=== PATIENT | male | born 1970 | race Caucasian/White ===

== ENCOUNTER 2023-05-01 08:51 | Outpatient (CLI) | payer BC, SELFPAY | END 2023-05-01 08:52 | disposition home or self-care (01) | LOC: NFLDREF 11:57 | PROVIDERS: PCP Internal Medicine; Referring Provider Internal Medicine; Visit Provider Internal Medicine | DX: E78.5 Hyperlipidemia, unspecified (principal); Z12.5 Encounter for screening for malignant neoplasm of prostate | CPT/HCPCS: 80053; 80061; G0103 ==

== ENCOUNTER 2024-04-18 07:08 | Outpatient (CLI) | payer BC, SELFPAY ==
--- NOTE | 2024-04-18 08:25 | W.ANESCHARGE ---
Anesthesia Charges Start Date/Time Anesthesia Start Date: 04/18/24 Anesthesia Start Time: 07:54 Stop Date/Time Anesthesia Stop Date: 04/18/24 Anesthesia Stop Time: 08:23 Coding CPT Codes CPT Codes: IMTIAZ LWR INTST NDSC NOS - 15136 ([id number]) P2 - PATIENT W/MILD SYST DISEASE, QK - HAT BLOCKING OPERATOR 2-4 CNCRNT ANES PROC, QX - SOCIAL DIRECTOR SVC W/ MD MED DIRECTION
--- NOTE | 2024-04-18 09:04 | W.ANESCHARGE ---
Anesthesia Charges Start Date/Time Anesthesia Start Date: 04/18/24 Anesthesia Start Time: 07:54 Stop Date/Time Anesthesia Stop Date: 04/18/24 Anesthesia Stop Time: 08:23 Coding CPT Codes CPT Codes: IMTIAZ LWR INTST NDSC NOS - 56456 ([id number]) P2 - PATIENT W/MILD SYST DISEASE, QK - WEIGHT SHIFTER 2-4 CNCRNT ANES PROC, QX - SERVER DEVELOPER SVC W/ MD MED DIRECTION
== END 2024-04-18 07:09 | disposition home or self-care (01) ==
LOC: OP CLINIC 07:08
PROVIDERS: PCP Internal Medicine; Visit Provider Internal Medicine
DX: Z12.11 Encounter for screening for malignant neoplasm of colon (principal); D17.5 Benign lipomatous neoplasm of intra-abdominal organs; D12.3 Benign neoplasm of transverse colon; Z86.0100 Personal history of colon polyps, unspecified
CPT/HCPCS: 00811; 45380; 88305; J2704

== ENCOUNTER 2024-05-27 07:55 | Outpatient (CLI) | payer BC, SELFPAY | END 2024-05-27 07:56 | disposition home or self-care (01) | LOC: NFLDREF 05-31 00:26 | PROVIDERS: PCP Internal Medicine; Referring Provider Internal Medicine; Visit Provider Internal Medicine | DX: E78.5 Hyperlipidemia, unspecified (principal) | CPT/HCPCS: 80053; 80061 ==

== ENCOUNTER 2024-06-27 07:06 | Outpatient (CLI) | payer BC, SELFPAY ==
--- NOTE | 2024-06-27 08:26 | P.ANES_ITS ---
Anesthesia Charges Start Date/Time Anesthesia Start Date: 06/27/24 Anesthesia Start Time: 07:55 Stop Date/Time Anesthesia Stop Date: 06/27/24 Anesthesia Stop Time: 08:27 Coding CPT Codes CPT Codes: IMTIAZ LWPam INTST NDSC NOS - 46219 ([id number]) P2 - PATIENT W/MILD SYST DISEASE, QX - DEVELOPMENT LEAD SVC W/ MD MED DIRECTION, QK - BACK TENDER PULP DRIER 2-4 CNCRNT ANES PROC
--- NOTE | 2024-06-27 08:26 | W.ANESCHARGE ---
Anesthesia Charges Start Date/Time Anesthesia Start Date: 06/27/24 Anesthesia Start Time: 07:55 Stop Date/Time Anesthesia Stop Date: 06/27/24 Anesthesia Stop Time: 08:27 Coding CPT Codes CPT Codes: IMTIAZ LWPam INTST NDSC NOS - 52979 ([id number]) P2 - PATIENT W/MILD SYST DISEASE, QX - ADMINISTRATIVE JUDGE SVC W/ MD MED DIRECTION, QK - HEAD CHAR FILTER TANK TENDER 2-4 CNCRNT ANES PROC
--- NOTE | 2024-06-27 09:07 | P.ANES_ITS ---
Anesthesia Charges Start Date/Time Anesthesia Start Date: 06/27/24 Anesthesia Start Time: 07:55 Stop Date/Time Anesthesia Stop Date: 06/27/24 Anesthesia Stop Time: 08:27 Coding CPT Codes CPT Codes: IMTIAZ LWR INTST NDSC NOS - 00095 ([id number]) P2 - PATIENT W/MILD SYST DISEASE, QK - MACHINE ROOM OPERATOR 2-4 CNCRNT ANES PROC, QX - MATHEMATICS PROFESSOR SVC W/ MD MED DIRECTION
--- NOTE | 2024-06-27 09:07 | W.ANESCHARGE ---
Anesthesia Charges Start Date/Time Anesthesia Start Date: 06/27/24 Anesthesia Start Time: 07:55 Stop Date/Time Anesthesia Stop Date: 06/27/24 Anesthesia Stop Time: 08:27 Coding CPT Codes CPT Codes: IMTIAZ LWR INTST NDSC NOS - 87596 ([id number]) P2 - PATIENT W/MILD SYST DISEASE, QK - TILE FITTER 2-4 CNCRNT ANES PROC, QX - PRINTING MACHINIST SVC W/ MD MED DIRECTION
== END 2024-06-27 07:07 | disposition home or self-care (01) ==
PROVIDERS: PCP Internal Medicine; Visit Provider Internal Medicine
DX: Z12.11 Encounter for screening for malignant neoplasm of colon (principal); Z86.0100 Personal history of colon polyps, unspecified; D12.0 Benign neoplasm of cecum; D12.3 Benign neoplasm of transverse colon; D12.8 Benign neoplasm of rectum
CPT/HCPCS: 00811; 00812; 45380; 45385; 88305; J2704

== ENCOUNTER 2024-07-10 22:18 | Emergency (ER) | payer BC, SELFPAY ==
--- NOTE | 2024-07-10 22:50 | CRLHL7_ITS ---
For Patients: As a result of the Century Cures Act, medical imaging exams and procedure reports are released immediately into your electronic medical record. You may view this report before your referring provider. If you have questions, please contact your health care provider. Indication: knee cap dislocation? tripped fell and landed on knee. Technique: Left knee 3 views Comparison: None Findings: Bones: The medial patellofemoral joint space appears to be abnormally widened, allowing for a slightly nonstandard imaging angle. There may also be mild lateral patellar subluxation. No evident acute fracture. Small patellar quadriceps enthesophyte. Joint spaces: No evident joint effusion. Mild degenerative changes in the lateral and patellofemoral compartments. Soft tissues: Unremarkable. Impression: Abnormal widening of the medial patellofemoral joint space with questionable mild lateral patellar subluxation. These findings can be seen in the setting of a recent transient lateral patellar dislocation. Dictated by Santhosh Starr MD @ 07/11/2024 12:28:01 AM (Electronically Signed)
[2024-07-10 22:51] VITALS: BP 108/61; PULSE 85; RESP 16; TEMP 36.7; O2SAT 95
--- NOTE | 2024-07-11 00:26 | ED.LOWEXIN ---
HPI - Extremity Injury (Lower) General Time Seen by Provider: 00:26 Date Seen: 07/11/24 Chief Complaint: Extremity Pain/Injury, Lower Stated Complaint: Popped left knee Time Seen by Provider: 07/11/24 00:01 Source: patient Mode of arrival: ambulatory Limitations: no limitations History of Present Illness HPI Narrative: 54-year-old male who presents today with left knee pain. Tripped and landed on his left knee, felt a pop and has had pain since then. Unable to bear weight. Related Data Previous Rx's ?Medication ?Instructions ?Recorded peg 3350-electrolytes 236 240 ml PO ONCE #1 bottle 05/16/24 gram-22.74 gram-6.74 gram-5.86 gram solution (Golytely) lotilaner 0.25 % eye drops 1 drp ophthalmic (eye) Q12H 6 05/31/24 weeks #10 mL Allergies Allergy/AdvReac Type Severity Reaction Status Date / Time No Known Drug Allergies Allergy Verified 05/31[facility]24 07[facility] History (Updated 07/11/24 @ 00:39 by Santiago Webb MD) Blepharitis ?H01.009 - Unspecified blepharitis unspecified eye, unspecified eyelid (ICD-10) Facial trauma ?S09.93XA - Unspecified injury of face, initial encounter (ICD-10) Social History (Updated 05/31/24 @ 08:15 by Lolita Robison ~ [facility]) What is your current living situation?: I presently have a place to live Problems where you live: declined to answer In the past 12 months, utilities in danger of being shut off: no In past 12 months, lack of transportation kept you from medical appts, meetings, work, or getting things needed for daily living: no In the past 12 mos, have been you worried that your food would run out before you had money to buy more?: never true In the past 12 mos, the food you bought just didn't last and you didn't have money to buy more?: never true Smoking Status: Never smoker Second hand tobacco smoke exposure: No How often do you have a drink containing alcohol: never AUDIT-C Alcohol total score: 0 Non-prescribed substance use: denies use How often does anyone, including family, friends and others, physically hurt you: never How often does anyone, including family, friends and others, insult or talk down to you: never How often does anyone, including family, friends and others, threaten you with harm: never How often does anyone, including family, friends and others, scream or curse at you: never Exam Narrative: Exam Narrative: General: well nourished , NAD Head: Atraumatic and normocephalic ENT: External ears and external nose are normal Eyes: Conjunctiva clear, pupils are equal reactive, external ocular motions are intact Neck: Full spontaneous range of motion of the neck Lungs: No respiratory distress Musculoskeletal: No tenderness or deformity Neurologic: Left patella is slightly laterally displaced with soft tissue swelling and tenderness medially, also some soft tissue swelling and marked tenderness of the distal quadriceps on the left side Skin: No rashes Psych: Mood and affect are appropriate Const: Vital Signs, click to edit/add: Vital Signs - 24 hr 07/10/24 22:51 07/11/24 00:55 07/11/24 00:56 Temperature 98.1 F 98.1 F 98.1 F Pulse Rate [Pulse Oximeter] 85 79 79 Respiratory Rate 16 16 16 Blood Pressure [Ri ght Upper Arm] 108/61 112/74 112/74 Pulse Oximetry 95 95 Oxygen Delivery Me thod Room Air Room Air Course Course ED Course: Patient seen and examined, x-ray independently interpreted by me with slight lateral deviation of the patella. Patient presents today with left knee pain after falling on it. He notes that the patella was displaced off the side of the knee is little better and now although still displaced. On exam, vitally stable, there is swelling and tenderness of the distal quadriceps as well as some soft tissue swelling medial to the patella but no definite joint effusion. Symptoms are most consistent with patellar dislocation and quadriceps tendon injury along with tear of the medial retinaculum. Nonweightbearing, immobilizer, and follow-up with orthopedics. Vital Signs Vital signs: Initial Vital Signs Temperature 98.1 F 07/10/24 22:51 Temperature Source Temporal Artery Scan 07/10/24 22:51 Pulse Rate 85 07/10/24 22:51 Respiratory Rate 16 07/10/24 22:51 Blood Pressure 108/61 07/10/24 22:51 Blood Pressure Mean 76 07/10/24 22:51 Blood Pressure Position Sitting 07/10/24 22:51 Pulse Oximetry 95 07/10/24 22:51 Oxygen Delivery Method Room Air 07/10/24 22:51 Vital Signs Temperature 98.1 F 07/10/24 22:51 Pulse Rate 85 07/10/24 22:51 Respiratory Rate 16 07/10/24 22:51 Blood Pressure 108/61 07/10/24 22:51 Pulse Oximetry 95 07/10/24 22:51 Oxygen Delivery Method Room Air 07/10/24 22:51 Temperature 98.1 F 07/11/24 00:56 Pulse Rate 79 07/11/24 00:56 Respiratory Rate 16 07/11/24 00:56 Blood Pressure 112/74 07/11/24 00:56 Pulse Oximetry 95 07/11/24 00:55 Oxygen Delivery Method Room Air 07/11/24 00:55 Discharge Plan Discharge Clinical Impression: Closed dislocation of left patella, Traumatic medial retinacular tear of left knee, Quadriceps muscle strain Patient Disposition: Home, Self-Care Condition: Stable Instructions: Knee Dislocation (ED) Additional Instructions: No weight-bearing for the next 24 hours, after that weight-bearing as tolerated Wear knee immobilizer when your up walking, you take this off at night Call orthopedic clinic [phone] for follow-up appointment in 5-7 days Activity Level: Weight Bearing as Tolerated Discharge Diet: Regular Prescriptions: No Action lotilaner 0.25 % drops 1 drp ophthalmic (eye) Q12H 42 Days Qty: 10 1RF peg 3350-electrolytes [Golytely] 236-22.74-6.74 -5.86 gram recon soln 240 ml PO ONCE Qty: 1 0RF Rx Instructions: 4pm day prior to procedure. Drink 8oz glass every 15 minutes until 1/2 of solution is gone. 6 hours prior to procedure drink 8 oz glass every 15 minutes until remaining solution gone. Follow Up/Referrals: Ozzy Floyd MD [Primary Care Provider, Internal Medicine] Stand Alone Forms: [facility] Info Inst[facility]
[2024-07-11 00:55] VITALS: BP 112/74; PULSE 79; RESP 16; TEMP 36.7; O2SAT 95
[2024-07-11 00:56] VITALS: BP 112/74; PULSE 79; RESP 16; TEMP 36.7
== END 2024-07-11 00:57 | disposition home or self-care (01) ==
LOC: ED 07-11 00:41
PROVIDERS: Emergency Provider Family Medicine; PCP Internal Medicine
DX: S83.005A Unspecified dislocation of left patella, initial encounter (principal); S83.411A Sprain of medial collateral ligament of right knee, initial encounter; S76.111A Strain of right quadriceps muscle, fascia and tendon, initial encounter; W01.0XXA Fall on same level from slipping, tripping and stumbling without subsequent striking against object, initial encounter
CPT/HCPCS: 73562; 99283; 99284

== ENCOUNTER 2024-07-25 06:59 | Outpatient (CLI) | payer BC, SELFPAY ==
--- NOTE | 2024-07-25 07:15 | MR_ITS ---
[address] [address] Phone:?[phone] Fax:?[phone] Referring Physician Information: Junior Rose M.D. [id number] [facility] [address] Phone:?[phone] Fax:?[phone] Patient:Adri Jose D.O.B:?1970 Sex:?Male Phone:?[phone] [facility] MRN:?[id number] Exam Date:?07/25/2024 EXAM: MRI of the LEFT KNEE, without contrast CLINICAL: Left knee injury. Evaluate for quadriceps tendon tear and patellar dislocation. COMPARISONS: X-rays 07/11/2024. TECHNICAL: Multiplanar multisequence MRI of the left knee was obtained. SEDATION: None. CONTRAST: None. FINDINGS: Ligaments: ACL: Intact and unremarkable. PCL: Intact and unremarkable. MCL: There is soft tissue edema about the MCL, which otherwise appears intact. LCL: There is soft tissue edema about the LCL, which otherwise appears intact. Posterolateral corner: There is increased soft tissue edema about the posterolateral corner structures. Popliteus tendon, biceps femoris, iliotibial band, and the popliteofibular ligament appear intact. Posteromedial corner: Semimembranosus, pes anserine tendons and posterior oblique ligament appear intact. Extensor mechanism: Patellar tendon: There is mild tendinosis of the tendon. No patellar tendon disruption. Quadriceps tendon: There is full-thickness tearing throughout the distal quadriceps tendon at the patellar attachment with proximal retraction of the torn tendon by up to 4 cm as seen on sagittal series 6 image 10-24. Retinacula: There is full-thickness tearing of the medial patellofemoral ligament/medial patellar retinaculum with ill-defined partial tearing involving the lateral patellar retinaculum. Patellofemoral joint: Patella: No significant chondromalacia. Trochlea: No significant chondromalacia. Medial compartment: Medial meniscus: There is complex tearing involving the peripheral undersurface of the posterior horn extending into the junction with the body segment on sagittal series 6 images 7-10 and coronal series 8 images 24-27. Medial cartilage: No significant chondromalacia. Lateral compartment: Lateral meniscus: No evidence of discrete meniscal tear or meniscal displacement. Lateral cartilage: No significant chondromalacia. Knee joint: Effusion: Moderate sized left knee effusion with extension of fluid through the distal quadriceps tendon defect into the anterior knee subcutaneous soft tissues. Intra-articular bodies:?No convincing bodies identified. Popliteal cyst: None. Bones: There is mild marrow edema/contusion involving the peripheral anterior medial femoral condyle on coronal series 8 images 16-18. No discrete fracture. There is scattered edema involving the subcutaneous soft tissues of the knee. IMPRESSION: 1. Complete full-thickness tearing of the distal quadriceps tendon from the patellar attachment with up to 4 cm of proximal retraction of torn tendon fibers. Moderate-sized joint effusion is present with extension of joint fluid through the distal quadriceps tendon defect into the anterior knee subcutaneous soft tissues. 2. Full-thickness tearing of the medial patellofemoral ligament/retinaculum with ill-defined partial tearing involving the lateral patellar retinaculum. 3. Tearing of the medial meniscus as above. 4. Soft tissue edema about the MCL and LCL, which otherwise appear intact. 5. Mild marrow edema/contusion involving the peripheral anterior medial femoral condyle. [facility] Electronically signed on 07/25/2024 11:47:00 AM by Francisco Peraza D.O.
== END 2024-07-25 07:00 | disposition home or self-care (01) ==
LOC: MRI 07:00
PROVIDERS: PCP Internal Medicine; Visit Provider Orthopaedic Surgery
DX: M25.562 Pain in left knee (principal); S76.112A Strain of left quadriceps muscle, fascia and tendon, initial encounter; S83.242A Other tear of medial meniscus, current injury, left knee, initial encounter; S83.005A Unspecified dislocation of left patella, initial encounter
CPT/HCPCS: 73721

== ENCOUNTER 2024-07-28 07:09 | Day surgery (SDC) | payer BC, SELFPAY ==
[2024-07-28] VITALS (16 sets, daily range): BP systolic 84–132; BP diastolic 52–88; PULSE 60–92; RESP 16–23; TEMP 35.9–36.4; O2SAT 91–98; BMI 30.8
[2024-07-28] MEDS: SODIUM CHLORIDE 0.9 % (FLUSH) 10 ML SYRINGE IVF (08:08)
[2024-07-28] MEDS: LACTATED RINGERS 1000 ML 1,000 ML 100 ML IV (08:08)
[2024-07-28] MEDS: fentaNYL 100 MCG/2 ML inj IVP (08:21)
[2024-07-28] MEDS: MIDAZOLAM HCL 1 MG/ML inj IVP (08:21)
--- NOTE | 2024-07-28 08:24 | SUR.PREOP ---
TIME?OUT:?0820 PT/RN/MDA?VERIFICATION?OF?SURGICAL?SITE,?PROCEDURE,?AND?CONSENT OBTAINED?PRIOR?TO?INVASIVE?PROCEDURE. all in agreement
[2024-07-28] MEDS: CEFAZOLIN 1 GM inj IVP (08:58)
--- NOTE | 2024-07-28 09:43 | P.ANES_ITS ---
Anesthesia Charges Start Date/Time Anesthesia Start Date: 07/28/24 Anesthesia Start Time: 08:43 Stop Date/Time Anesthesia Stop Date: 07/28/24 Anesthesia Stop Time: 10:16 Coding CPT Codes CPT Codes: ANESTH KNEE AREA SURGERY - 27144 ([id number]) P2 - PATIENT W/MILD SYST DISEASE, QK - FURNACE ROOM SUPERVISOR 2-4 CNCRNT ANES PROC, QX - CLERK TELEGRAPH SERVICE SVC W/ MD MED DIRECTION
--- NOTE | 2024-07-28 09:43 | W.ANESCHARGE ---
Anesthesia Charges Start Date/Time Anesthesia Start Date: 07/28/24 Anesthesia Start Time: 08:43 Stop Date/Time Anesthesia Stop Date: 07/28/24 Anesthesia Stop Time: 10:16 Coding CPT Codes CPT Codes: ANESTH KNEE AREA SURGERY - 47015 ([id number]) P2 - PATIENT W/MILD SYST DISEASE, QK - PACKING SHED SUPERVISOR 2-4 CNCRNT ANES PROC, QX - HYDROELECTRIC SYSTEMS TECHNICIAN SVC W/ MD MED DIRECTION
--- NOTE | 2024-07-28 10:04 | P.ORPRC_ITS ---
Procedure Note Date of procedure: 07/28/24 Procedure: PREOPERATIVE DIAGNOSIS: Left knee quads tendon tear POSTOPERATIVE DIAGNOSIS: Left knee quads tendon tear NAME OF OPERATION: Left knee quads tendon repair SURGEON: Junior Rose MD VALET ATTENDANT: Lashay Lugo PA-C ANESTHESIA: Spinal ESTIMATED BLOOD LOSS: 0 mL COMPLICATIONS: None SPECIMENS: None DRAINS: None PREOPERATIVE ANTIBIOTICS: Ancef 2 grams IMPLANTS: None INDICATIONS: The patient is a 54-year-old who fell recently sustaining the above diagnoses. Operative intervention was recommended. The risks, benefits and expected outcomes were discussed in detail. These included but were not limited to: Infection, bleeding, injury to blood vessel or nerve, venous thromboembolism. All questions were answered to their satisfaction. Use of an payroll and benefits assistant was necessary throughout the case for patient positioning and safety, soft tissue retraction, and closure. PROCEDURE: A femoral nerve block was placed by Anesthesia. Spinal anesthesia was administered. The patient was placed supine on the operating table. The left lower extremity was prepped and draped in the usual sterile fashion. The limb was exsanguinated with the Dennis bandage. The pneumatic tourniquet was inflated to 225 mmHg. A longitudinal, midline incision was made over the anterior aspect of the knee. Subcutaneous dissection was taken sharply to the quads tendon. Full-thickness medial and lateral flaps were elevated. The quads tendon was found to be ruptured completely from its insertion on the proximal pole of the patella. The medial and lateral retinacula were completely torn as well. Hematoma was removed with the curette and rongeur. A modified Krackow stitch x2 with 1.7 mm suture tape was placed in the quads tendon. We then drilled a Beath pin x3 through the patella from proximal to distal. We then passed suture tails through the patella using the Beath pins to shuttle them. One suture both medially and laterally and 2 suture tails centrally. We then advanced the patella proximally with a rake and tied the trans osseous suture tape sutures over the distal pole of the patella. We closed the medial and lateral retinacula with a # 1 FiberWire suture. Subcutaneous tissues were closed with a 3-0 Stratafix and the skin with a running 3-0 Stratafix in a subcuticular fashion. A dry dressing and T scope brace were applied. Sponge and needle counts were correct x2. The patient tolerated the procedure well. There were no apparent complications. They were carefully transferred to the hospital bed and taken to the postanesthesia care unit in satisfactory condition. PLAN: The patient will be discharged to home. They may weightbear as tolerates with the brace locked in full extension. No range of motion will be allowed for the 1st 2 weeks postoperatively, then 0-30 degrees for 2 weeks, then 0-60 degrees x2 weeks, then 0-90 degrees. They will follow up in the office in 2 weeks for a wound check and to unlock the brace 0-30 degrees. Physical therapy can be started after the 1st postoperative visit. I will plan to see him at 6 weeks postop.
--- NOTE | 2024-07-28 10:12 | P.ANES_ITS ---
Anesthesia Charges Start Date/Time Anesthesia Start Date: 07/28/24 Anesthesia Start Time: 08:43 Stop Date/Time Anesthesia Stop Date: 07/28/24 Anesthesia Stop Time: 10:16 Coding CPT Codes CPT Codes: ANESTH KNEE AREA SURGERY - 62350 ([id number]) P2 - PATIENT W/MILD SYST DISEASE, QK - CASE COORDINATOR 2-4 CNCRNT ANES PROC, QX - VENEER PRESS OPERATOR SVC W/ MD MED DIRECTION
--- NOTE | 2024-07-28 10:12 | W.ANESCHARGE ---
Anesthesia Charges Start Date/Time Anesthesia Start Date: 07/28/24 Anesthesia Start Time: 08:43 Stop Date/Time Anesthesia Stop Date: 07/28/24 Anesthesia Stop Time: 10:16 Coding CPT Codes CPT Codes: ANESTH KNEE AREA SURGERY - 61381 ([id number]) P2 - PATIENT W/MILD SYST DISEASE, QK - DIGITAL ACCOUNT DIRECTOR 2-4 CNCRNT ANES PROC, QX - SENIOR APPLICATION SOFTWARE ENGINEER SVC W/ MD MED DIRECTION
--- NOTE | 2024-07-28 10:40 | P.NB_ITS ---
Nerve Block Nerve Block Time Seen by Provider: 08:20 Date Seen: 07/28/24 Type of block requested by surgeon for post-operative analgesia: femoral Side: left Time out performed: Yes Verification of patient name: Yes Verification of date of : Yes Site marking: site marked Name of person performing procedure: Johnson Continuous monitoring Was continuous monitoring of O2 sat, B/P, air sampling and monitoring, recorded every 15 minutes?: Yes Procedure Checklist: sterile prep, needles and gloves Ultrasound guided. Images saved: Yes Medications given in 5ml increments after negative aspiration: Marcaine %: 0.5 mL: 20 Needle gauge: 20 Precedex (mcg): 25 Patient tolerated procedure well: Yes Block Charges Block Charge (with Pro Fee): Femoral Nerve Use of Ultrasound Machine for Block: Yes- US Guidance/pain block
[2024-07-28] MEDS: LACTATED RINGERS 1000 ML 1,000 ML 35 ML IV (10:42)
--- NOTE | 2024-07-28 10:49 | SUR.PHASEI ---
patient met discharge criteria per anesthesia
--- NOTE | 2024-07-28 11:06 | SUR.OPER ---
PATIENT QUESTIONS ANSWERED SATISFACTORILY PREOPERATIVELY. PATIENT BROUGHT TO OR #1 PER CART. Patient positioned supine on OR #1 bed. The perioperative team supported arms bilaterally on arm boards. Final approval of positioning by surgeon.
[2024-07-28] MEDS: IBUPROFEN 400 MG TABLET PO (11:47)
--- NOTE | 2024-07-28 12:14 | SUR.PHASEII ---
Patient reported wanting PT assistance with going on stairs and using crutches. Patient stood with assistance of nurse and walker, denied nausea. Patient tolerated standing and transferring to wheelchair. Patient and spouse to physical therapy in wheelchair.
[2024-07-28] MEDS: OXYCODONE 5 MG TABLET PO (12:48)
== END 2024-07-28 13:05 | disposition home or self-care (01) ==
LOC: OR 07:11
PROVIDERS: PCP Internal Medicine; Visit Provider Orthopaedic Surgery
PROC: (CPT 27385; principal; 2024-07-28 08:30)
DX: S76.112A Strain of left quadriceps muscle, fascia and tendon, initial encounter (principal); G89.18 Other acute postprocedural pain
CPT/HCPCS: 27385; 01320; 64447; 76942; 97116; 97161; 97530; A9270; J0665; J0690; J1100; J2250; J2405; J2704; J3010; J7120

== ENCOUNTER 2024-12-30 09:15 | Outpatient (RCR) | payer BC, SELFPAY ==
--- NOTE | 2024-12-30 09:58 | PT.OPDNX ---
PT [place] [facility] Daily Note PT [facility] Outpatient Daily Note Start: 08/15/24 08:34 Freq: Status: Active Protocol: Document 12/30/24 09:15 NLR (Rec: 12/30/24 09:57 NLR [id number]) E-signed By Nati Blancas DPT PT OP Daily Progress Note Visit Information Note Type Discharge Note Visit Number 10 Insurance Information Insurance Name [employer] Medical Diagnosis [id number] Other specified postprocedural state - LEFT quad tendon repair Treating Diagnosis M25.562 LEFT knee pain M25.662 LEFT knee stiffness M62.552 LEFT quad weakness Imaging Report Primary Provider: John Floyd MD Information Referring MD Moe Rose MD Subjective Preferred Name BUDDY Subjective Buddy reports for his final PT visit doing well. He reports some quick bending issues and difficulty with end range loaded extension that are consistent with motor control of quad. He also has noticed that he sometimes will walk with a circumduction on the L due to habit. Pain Comments Date of Last 08/29/24 Physician Visit Date of Next 10/12/24 Physician Visit Date of Surgery (If 07/28/24 applicable) Precautions Treatment PROTOCOL: July 28-August 11 WBAT - brace locked in Precautions/ extension Contraindications August 12-August 23 WBAT - brace at 30 degrees August 24-September 06 WBAT - brace at 60 degrees September 07-Sep 20 WBAT - brace at 90 degrees Sep 20-Oct 12 WBAT with brace unlocked (90 degrees) Oct 12 - likely DC brace Weight Bearing Full Weight Bearing Status Home Exercise Home Exercise Updated and finalized [facility] with patient today. Comments Added soft knee motor control step ups to improve motor control at knee and gait mechanics initial swing knee breaks to minimize circumduction. Access Code: [email or web address] URL: [email or web address] Date: 11/22/2024 Prepared by: Nati Blancas Exercises - Bridge with Straight Leg Raise - 2 sets - 10 reps - 2-3 seconds hold - core strength exercise type - Seated Long Arc Quad with Ankle Weight - 2 sets - 10 reps - 2-3 second hold - strength exercise type - Seated Hamstring Stretch - 1-2 reps - 30-60 seconds hold - stretch exercise type - Seated Knee Flexion Stretch - 1-2 reps - 1-5 minute hold - range of motion/stretch exercise type - Seated Passive Knee Extension - 1-2 reps - 5-15 minutes hold - range of motion/stretch exercise type - Mini Sit with VMO Bias - 2 sets - 10 reps - 2-3 second hold - strength exercise type - Alternating Knee Flexion/Extension Stretch on Stairs - 10-20 reps - 5-10 second hold - range of motion/ stretch exercise type - Supported Controlled Step Up - 2 sets - 10 reps - 2- 3 seconds hold - strength exercise type - Controlled Forward Step Down - 2 sets - 10 reps - 2- 3 seconds hold - strength exercise type - Banded Terminal Knee Extension in Stride - 2 sets - 10 reps - 2-3 seconds hold - strength exercise type - Monster Walks - 2 reps - distance 10-30 feet - strength/balance exercise type - Supported Y Slider - 2 sets - 10 reps - 2-3 seconds hold - strength exercise type - Forward Tandem Walking - 1-3 reps - 10-30 feet distance - balance exercise type - Single-Leg [place] Deadlift With Kettlebell - 2 sets - 10 reps - 2-3 seconds hold - strength/balance exercise type - Jump Off Platform with Soft Landing - 10 reps - 2-3 seconds hold - strength exercise type - Hip and Knee Flexion with Anchored Resistance - 2 sets - 10 reps - 2-3 second hold - strength exercise type - STEP ONE: Pelvis Balance - 1-2 x weekly - 10 reps - 3-5 second hold - postural correction exercise type - STEP TWO: Pelvis Balance (Mirrored) - 1-2 x weekly - 1-2 sets - 10 reps - 3-5 second hold - postural correction exercise type Objective Other/Pertinent HAND DOM: RHD Objective ROM: LEFT knee no longer in brace. RIGHT WFL. STRENGTH: LEFT quad 3+/5, LEFT HS 4/5, LEFT glutes 4+/5 ; RIGHT WFL PALPATION: Patient exhibits tenderness to palpation at medial and lateral joint lines EDEMA: Moderate non-pitting LEFT leg GAIT: WBAT with LEFT circumduction due to locked brace FUNCTIONAL: I bed transfers, I shower, I car transfers , can drive FOOTWEAR: Patient arrives wearing Birkenstocks, wears slip on sport shoe to work. Functional Test 08/15/24 KOOS-12 Score: 56.2 / 100 = 56.2 % Performed & Score (Pain Score: 62.5; Function Score: 56.3; Quality of Life Score: 50.0) Patient Instructed Yes in Risks/Benefits Therapeutic Exercise Therapeutic Exercise 25 Minutes (minutes) Therapeutic Exercise - Soft knee motor control step ups : To Restore - Initial swing knee breaks to minimize circumduction Functional Status - Small controlled 6 box jumps - Single leg [place] citizen lift with 12# - Recumbent Bike seat 10, able to make full revolutions - Eccentric Leg Press seat 5 - B 100# R 60# - Quad Cybex extension B 20# R 10# - Hamstring Cybex flexion B 30# - Monster walks with yellow loop band - Terminal knee extension with green band - Forward and backward tandem walking - SLS with knee soft for motor control (tried Y sliders but not quite ready) - Supported Controlled Step Up 6 step - Controlled Forward Step Down 4 step Treatment Minutes Timed Code Treatment 25 Minutes Total Treatment Time 25 Billing Units Therapeutic Exercise 2 Units Assessment/Impression Assessment/ Buddy has progressed well. He is functionally Impression independent. He still exhibits some high level motor control deficits at the left knee at terminal extension , but strength is good so gave him some soft knee step ups to fine tune his motor control. He is also reverting to L leg circumduction during gait on occasion due to habit, so worked on initial swing knee breaks to improve knee flexion and minimize circumduction. He can volitionally control left knee mechanics during swing, but habitually returns to circumduction. He offers no additional questions or concerns, goals have been achieved. Recommend DC with HEP. Primary Functional None Limitations Plan of Care Physical Therapy 1. Patient will be independent with home exercise Goals program as instructed, modified and progressed by physical therapist in order to be independently and actively participating in their rehabilitation and return to prior level of function. Goal to be achieved by 11/14/2024. ACHIEVED 2. Patient will demonstrate ability to walk for 120 minutes(s) without significant increase in pain greater than 2/10 to allow patient to be able to safely and independently return to participation in desired level of function with daily activities such going to work, participating in desired recreational activities, walking for exercise without pain or difficulty. Goal to be achieved by 08/15/2024. ACHIEVED Daily Plan of Care Discharge Daily Plan of Care DC with HEP Comments Discharge Note Discharge Summary Buddy has progressed well. He is functionally independent. He still exhibits some high level motor control deficits at the left knee at terminal extension , but strength is good so gave him some soft knee step ups to fine tune his motor control. He is also reverting to L leg circumduction during gait on occasion due to habit, so worked on initial swing knee breaks to improve knee flexion and minimize circumduction. He can volitionally control left knee mechanics during swing, but habitually returns to circumduction. He offers no additional questions or concerns, goals have been achieved. Recommend DC with HEP. Date of First Visit 08/15/24 for Therapy Date of Last Visit 12/30/24 for Therapy Initial Primary Difficulty walking long distances. Functional Limitations Pain Level at 0/10 Discharge Recommendations/ Met All Therapy Goals Reason for Discharge Discharge DC with HEP Instructions Thank You For This Thank you for this physical therapy referral. Discharge Referral is attached. Signature not required. Contact us if you have any questions or concerns by phone at or by fax at [phone] attn: Nati Sy, PT, DPT.
== END 2025-01-17 12:00 | disposition home or self-care (01) ==
PROVIDERS: PCP Internal Medicine; Visit Provider Physician Assistant Surgical
DX: Z48.89 Encounter for other specified surgical aftercare (principal); Z51.89 Encounter for other specified aftercare
CPT/HCPCS: 97110; 97112; 97116; 97161